=== PATIENT | female | born 1955 | race Caucasian/White ===

== ENCOUNTER 2018-05-20 09:28 | Inpatient (IN) ==
[2018-05-20] MEDS ORDERED: SODIUM CHLORIDE 0.9% 1,000 ML IV STA (10:14)
[2018-05-20] MEDS ORDERED: ONDANSETRON 4 MG/2 ML VIAL IV STA (10:15)
[2018-05-20 10:36] LABS: Eosinophils % 0.9 % (0.00-10.9); Hematocrit 31.9 VOL% (35.7-47.0); Hemoglobin 10.5 GM/DL (12.0-16.0); Immature Granulocytes % 0.9 %; Immature Granulocytes Absolute 0.02 #; Lymphocytes # 0.2 10*3/uL (1.4-4.0); Lymphocytes % 8.2 % (21.3-54.2); Mean Corpuscular HGB Conc 32.9 GM/DL (32-36); Mean Corpuscular Hemoglobin 29 PG (27-34); Mean Corpuscular Volume 89.1 FL (87-102); Mean Platelet Volume 11.6 FL (9.6-12.0); Monocytes # 0.1 10*3/uL (0.11-0.8); Monocytes % 2.6 % (1.7-12.7); Neutrophils % 87.4 % (38.7-73.9); Platelet Count 179 T/CUMM (130-400); Red Blood Count 3.58 MC/CUMM (3.8-5.5); Red Cell Distribution Width 13.9 % (9.3-17.3); White Blood Count 2.3 T/CUMM (4-12)
[2018-05-20 10:45] LABS: Hypochromasia 1+; Lymphocytes 11 % (20-55); Ovalocytes Slight; Platelet Estimate Adequate; Segmented Neutrophils 86 % (50-85); Total Cells Counted 100
[2018-05-20 11:10] LABS: Albumin 2.5 G/DL (3.4-5.0); Bilirubin,Total 0.6 MG/DL (0.2-1.0); Calcium 8.8 MG/DL (8.5-10.1); Osmolality,Calculated 278.8 MOS/KG (273-304); Total Protein 7.3 G/DL (6.4-8.3)
[2018-05-20] MEDS ORDERED: LEVOFLOXACIN INJ 750 MG in PREMIX 1 EACH IV STA (11:53)
[2018-05-20] MEDS ORDERED: ACETAMINOPHEN 325 MG TABLET PO PRN (12:02)
[2018-05-20] MEDS ORDERED: PROMETHAZINE 25 MG/1 ML VIAL IM PRN (12:02)
[2018-05-20] MEDS ORDERED: ONDANSETRON 4 MG/2 ML VIAL IV PRN (12:02)
[2018-05-20 12:40] LABS: Amorphous Crystals,Urine Few /HPF (Few); Apearance,Urine CLOUDY (Clear); Bacteria,Urine Occasional /HPF (Few); Bilirubin,Urine Negative (Negative); Blood, Urine Large mg/dL (Negative); Glucose,Urine (UA) >=500 mg/dL (Negative); Ketones,Urine 5 mg/dL (Negative); Nitrite,Urine Negative (Negative); Protein,Urine 30 MG/DL; RBC,Urine 15 /HPF (0-4); Squamous Epithelial Cell,Urine Occasional /HPF (0-10); Urine Color Yellow (Yellow); Urine Specific Gravity 1.011 (1.001-1.035); Urine Urobilinogen < 2.0 EU/DL (0.2-1.0)
[2018-05-20] MEDS ORDERED: DEXTROSE 50% 25 GM/50 ML VIAL IV PRN (13:17)
[2018-05-20] MEDS ORDERED: GLUCAGON 1 MG VIAL IM PRN (13:17)
[2018-05-20] MEDS: SODIUM CHLORIDE 0.9% 1,000 ML IV SCH ×2 (13:19→23:11)
[2018-05-20] MEDS ORDERED: CYANOCOBALAMIN 1000 MCG/1 ML VIAL IM SCH (14:00)
[2018-05-20] MEDS: MEROPENEM 1,000 MG in SODIUM CHLORIDE 0.9% 100 ML IV SCH (15:48)
[2018-05-20] MEDS: INSULIN LISPRO 100 UNIT/ML SUBCUT SCH ×2 (18:04→22:44)
[2018-05-20] MEDS: ENOXAPARIN 40 MG/0.4 ML SYRINGE SUBCUT SCH (22:43)
[2018-05-21] MEDS: MEROPENEM 1,000 MG in SODIUM CHLORIDE 0.9% 100 ML IV SCH ×2 (02:14→14:38)
[2018-05-21 06:23] LABS: Basophils % 0.2 % (0.0-0.8); Eosinophils % 0.4 % (0.00-10.9); Hematocrit 26.1 VOL% (35.7-47.0); Immature Granulocytes Absolute 0.05 #; Lymphocytes # 1.2 10*3/uL (1.4-4.0); Lymphocytes % 23.2 % (21.3-54.2); Mean Corpuscular Hemoglobin 29 PG (27-34); Mean Corpuscular Volume 88.2 FL (87-102); Mean Platelet Volume 11.3 FL (9.6-12.0); Monocytes % 19.1 % (1.7-12.7); Neutrophils # 2.9 10*3/uL (1.4-7.4); Neutrophils % 56.1 % (38.7-73.9); Red Blood Count 2.96 MC/CUMM (3.8-5.5); Red Cell Distribution Width 14.5 % (9.3-17.3); White Blood Count 5.1 T/CUMM (4-12)
[2018-05-21 06:25] LABS: Hemoglobin 8.6 GM/DL (12.0-16.0); Platelet Count 181 T/CUMM (130-400)
[2018-05-21] MEDS: SODIUM CHLORIDE 0.9% 1,000 ML IV SCH ×4 (06:27→18:14)
[2018-05-21 06:35] LABS: Hypochromasia Slight; Lymphocytes 18 % (20-55); Platelet Estimate Adequate; Polychromasia Few; Segmented Neutrophils 73 % (50-85); Total Cells Counted 100
[2018-05-21 06:57] LABS: Alanine Aminotransferase 12 U/L (13-56); Alkaline Phosphatase 71 U/L (45-117); Aspartate Amino Transferase 13 U/L (0-37); Blood Urea Nitrogen 21 MG/DL (7-18); Calcium 7.7 MG/DL (8.5-10.1); Cholesterol 91 MG/DL (50-200); Glucose 161 MG/DL (74-106); HDL Cholesterol < 10 MG/DL (40-60); Potassium 3.5 MMOL/L (3.5-5.1); Sodium 136 MMOL/L (136-145); Total Protein 5.9 G/DL (6.4-8.3); Triglycerides 232 MG/DL (2-150); VLDL CHOLESTEROL 46.4 MG/DL
[2018-05-21 07:33] LABS: % Iron Saturation 11.1 % (18-50); Ferritin 162.6 ng/ml (8-252)
[2018-05-21 08:07] LABS: Folate 10.4 NG/ML (5.4-24.0); Vitamin B12 > 2000 PG/ML (211-911)
[2018-05-21] MEDS: INSULIN LISPRO 100 UNIT/ML SUBCUT SCH ×4 (08:29→20:29)
[2018-05-21] MEDS: CLOPIDOGREL 75 MG TABLET PO SCH (08:30)
[2018-05-21] MEDS: ASPIRIN EC 325 MG TABLET PO SCH (08:30)
[2018-05-21] MEDS: FENOFIBRATE 145 MG TABLET PO SCH (08:30)
[2018-05-21] MEDS: amLODIPine 10 MG TABLET PO SCH (08:31)
[2018-05-21] MEDS: PANTOPRAZOLE 40 MG TABLET PO SCH (08:31)
[2018-05-21] MEDS: glipiZIDE 5 MG TABLET PO SCH (16:23)
[2018-05-21] MEDS: ENOXAPARIN 40 MG/0.4 ML SYRINGE SUBCUT SCH (20:29)
[2018-05-22] MEDS: MEROPENEM 1,000 MG in SODIUM CHLORIDE 0.9% 100 ML IV SCH (01:29)
[2018-05-22 06:06] LABS: Calcium 8.1 MG/DL (8.5-10.1); Osmolality,Calculated 279.7 MOS/KG (273-304); Potassium 3.5 MMOL/L (3.5-5.1)
[2018-05-22 06:08] LABS: Basophils % 0.5 % (0.0-0.8); Eosinophils % 0.7 % (0.00-10.9); Hematocrit 26.7 VOL% (35.7-47.0); Hemoglobin 8.9 GM/DL (12.0-16.0); Immature Granulocytes % 0.9 %; Immature Granulocytes Absolute 0.05 #; Lymphocytes # 1.4 10*3/uL (1.4-4.0); Lymphocytes % 23.7 % (21.3-54.2); Mean Corpuscular HGB Conc 33.3 GM/DL (32-36); Mean Corpuscular Hemoglobin 29 PG (27-34); Mean Corpuscular Volume 87.8 FL (87-102); Mean Platelet Volume 11.1 FL (9.6-12.0); Monocytes # 0.8 10*3/uL (0.11-0.8); Monocytes % 14.7 % (1.7-12.7); Neutrophils # 3.4 10*3/uL (1.4-7.4); Neutrophils % 59.5 % (38.7-73.9); Platelet Count 231 T/CUMM (130-400); Red Blood Count 3.04 MC/CUMM (3.8-5.5); Red Cell Distribution Width 14.6 % (9.3-17.3); White Blood Count 5.7 T/CUMM (4-12)
[2018-05-22] MEDS: SODIUM CHLORIDE 0.9% 1,000 ML IV SCH (06:16)
[2018-05-22 06:26] LABS: Hypochromasia 2+; Lymphocytes 30 % (20-55); Platelet Estimate Normal; Segmented Neutrophils 56 % (50-85); Target Cells 1+; Total Cells Counted 100
[2018-05-22] MEDS: CLOPIDOGREL 75 MG TABLET PO SCH (08:22)
[2018-05-22] MEDS: FENOFIBRATE 145 MG TABLET PO SCH (08:22)
[2018-05-22] MEDS: PANTOPRAZOLE 40 MG TABLET PO SCH (08:22)
[2018-05-22] MEDS: amLODIPine 10 MG TABLET PO SCH (08:22)
[2018-05-22] MEDS: INSULIN LISPRO 100 UNIT/ML SUBCUT SCH ×2 (08:23→12:27)
[2018-05-22] MEDS: ASPIRIN EC 325 MG TABLET PO SCH (08:23)
[2018-05-22] MEDS: glipiZIDE 5 MG TABLET PO SCH (08:23)
[2018-05-22] MEDS ORDERED: MAGNESIUM SULF RIDER 2 GM in PREMIX 1 EACH IV ONE (10:17)
[2018-05-22 12:30] VITALS: BP 141/73
== END 2018-05-22 13:48 | disposition home or self-care (01) | DRG 690 ==
LOC: N.ED 09:28 → SUATTDRO 12:02 → N.EDINP 12:02 → N.5E 12:32
PROVIDERS: ADMIT Internal Medicine Cardiovascular Disease; ATTEND Internal Medicine